=== PATIENT | female | born 2000 | race African-American/Black ===

== ENCOUNTER 2024-06-24 18:07 | Emergency (ER) | payer SELFPAY ==
--- NOTE | ~2024-06-24 | CT_ITS ---
Non-contrast Head CT History: Status post fall Technique: Axial non-contrast imaging of the brain was performed. Dose reduction technique was used on this scan by utilizing automated exposure control and iterative reconstruction technique. The dose -length product (DLP) was 681.00 mGy-cm. Findings: There is no evidence of intracranial hemorrhage, mass lesion, or acute infarct. Brain par enchyma appears normal. The ventricles and subarachnoid spaces are normal in size. The calvarium ap pears normal. The visualized paranasal sinuses and mastoid air cells are clear. Impression: No significant abnormality seen. Reviewed, dictated and finalized at location . Impression: No significant abnormality seen.
[2024-06-24 18:19] VITALS: BP 124/68; PULSE 74; RESP 16; TEMP 36.6; O2SAT 100
[2024-06-24 18:32] LABS: BEDSIDEPREGUCG Negative (Negative)
[2024-06-24 18:33] LABS: BEDSIDEPREGUCG Negative (Negative)
[2024-06-24 18:47] LABS: Basophils Percent Auto 0.4 % (0.2-1.2); Eosinophils Absolute Auto 0.1 K/mm3 (0-0.3); Hematocrit 38.7 % (37.0-47.0); Hemoglobin 12.3 g/dL (12.0-15.0); Immature Granulocyte Absolute 0.01 K/mm3 (0.00-0.031); Immature Granulocyte Percent A 0.2 % (0-0.5); Lymphocytes Percent Auto 45.7 % (18.3-44.2); Mean Corpuscular HGB Conc 31.8 g/dl (32-36); Mean Corpuscular Hemoglobin 27.4 pg (26-34); Mean Corpuscular Volume 86.2 fl (80-100); Mean Platelet Volume 9.8 fl (7.4-10.4); Monocytes Absolute Auto 0.4 K/mm3 (0.1-0.6); Monocytes Percent Auto 8.7 % (2.6-8.5); Neutrophils Absolute Auto 2.2 K/mm3 (1.3-6.7); Platelet Count Result 411 k/mm3 (150-375); Red Blood Count 4.49 M/mm3 (4.2-5.4); Red Cell Distribution Width 12.3 % (11.5-14.5)
[2024-06-24 18:59] LABS: Alanine Aminotransferase 14 U/L (6-35); Albumin Level 4.2 g/dL (3.5-5.1); Alkaline Phosphatase 54 U/L (38-126); Anion Gap 7 mmol/L (4-12); Aspartate Amino Transferase 19 U/L (14-36); Bilirubin,Total 0.3 mg/dL (0.2-1.3); Blood Urea Nitrogen 10 mg/dL (7-17); Carbon Dioxide 27 mmol/L (22-30); Chloride 103 mmol/L (98-107); Estimated Glomerular Filt Rate > 60; Glucose 97 mg/dL (65-110); Potassium 3.7 mmol/L (3.4-5.0); Sodium 137 mmol/L (137-145)
--- OUTSIDE RECORDS SUMMARY | 2024-06-24 19:05 | XMS_ITS | Referral Summary ---
Author Organization [facility] Address [address] [place] [id number] Care Team Providers Care Form Block Maker Name Role Phone Eric Hubbard DO Primary Care Provider + Encounters Date Type Department Care Team Description 04/17/2024 1:15 PM [facility] - 04/17/2024 2:40 PM [facility] Emergency [facility] Emergency Department [address] [place] [address] Lauryn Moses MD Abdominal pain (Primary Dx) Discharge Disposition: Discharge to home or self care 04/16/2024 [facility] Emergency Department [address] [place] [id number] Paula Shah RN 04/14/2024 1:48 PM [facility] - 04/14/2024 2:33 PM [facility] Emergency [facility] Emergency Department [address] [place] [id number] Sore throat (Primary Dx); Acute left-sided low back pain without sciatica Discharge Disposition: Discharge to home or self care from Last 3 Months Allergies No known active allergies Medications norethindrone-e.est radioL-iron (Lo Loestrin Fe) 1 mg-10 mcg (24)/10 mcg (2) tablet Lo Loestrin Fe 1 mg-10 mcg (24)/10 mcg (2) tablet TAKE ONE TABLET BY MOUTH DAILY Active ibuprofen (ADVIL,MOTRIN) 600 mg tablet Take 1 tablet (600 mg total) by mouth every 6 (six) hours as needed for pain 30 tablet 5 Active lidocaine (LIDODERM) 5 %Indications:Pain Place 1 patch on the skin daily Use patch for 12 hours on, 12 hours off. Discard after each use 7 patch 5 Active cyclobenzaprine (FLEXERIL) 10 mg tablet Take 1 tablet (10 mg total) by mouth 3 (three) times a day as needed for muscle spasms for up to 20 doses 20 tablet 5 Active ondansetron ODT (ZOFRAN-ODT) 4 mg disintegrating tablet Take 1 tablet (4 mg total) by mouth every 8 (eight) hours as needed for nausea or vomiting 10 tablet 5 Active ondansetron (ZOFRAN) 4 mg tablet Take 1 tablet (4 mg total) by mouth every 6 (six) hours 12 tablet 5 Active Active Problems Problem Noted Date Diagnosed Date Adjustment disorder with disturbance of conduct 10/31/2020 Ventricular septal defect 03/29/2009 Immunizations Immunization Administration Dates Next Due DTaP 1998,1998 HPV, Quadrivalent 08/31/2009 Hep A, Pediatric 08/31/2009 Influenza, Quadrivalent, Spl it, Preservative Free, Intramuscular 06/08/2020 Moderna SARS-CoV-2 Monovalent Vaccination (12+ Y RS) 07/31/2020,07/03/2020 PPD TEST 06/12/2020,06/08/2020 Polio, Unspecified 1998 Tdap 08/31/2009 Social History Tobacco Use Types Packs/Day Years Used Date Smoking Tobacco: Former Cigarettes Q uit: 2017 Alcohol Use Standard Drinks/Week Comments Never 0 (1 standard drink = 0.6 oz pur e alcohol) AUDIT-C Answer Date Recorded Q1: How often do you have a drink containing alc ohol? Never 10/19/2019 Average Number of Drinks Not on file 020 Frequency of Binge Drinking Not on file 09/22 PHQ-2 Answer Date Recorded PHQ-2 Total Score (If total score is 3 or more points, staff should administer the PHQ-9) 0 10/31/2020 Personal Safety Answer Date Recorded Have you ever been in or are you currently in a harmful physical or emotional relationship or is someone making you feel afraid or unsafe? Denies 04/17/2024 Comments No Sex and Gender Information Value Date Recorded Sex Assigned at Not on file Legal Sex Female 12:06 AM [employer] Gender Identity Not on file Sexual Orientation Not on file Last Filed Vital Signs Vital Sign Reading Time Taken Comments Blood Pressure 107/76 04/17/2024 1:05 PM [employer] [facility] Pulse 90 04/17/2024 1:05 PM [employer] Temperature 36.2 C (97.2 F) 04/17/2024 1:05 PM [employer] Respiratory Rate 16 04/17/2024 1:05 PM [employer] Oxygen Saturation 95% 04/17/2024 1:05 PM [employer] Inhaled Oxygen Concentration - - Weight 70.8 kg (156 lb) 04/17/2024 1:05 PM [employer] [facility] Height 160 cm (5' 3 ) 04/17/2024 1:05 PM [employer] Body Mass Index 27.63 04/17/2024 1:05 PM [employer] [facility] Plan of Treatment Not on file Procedures Procedure Name Priority Date/Time Associated Diagnosis Comments EGFR STAT 04/17/2024 1:09 PM [employer] [facility] DIFFERENTIAL AUTO STAT 04/17/2024 1:0 9 PM [employer] [facility] LIPASE STAT 04/17/2024 1:09 PM [employer] COMPREHENSIVE METABOLIC PANEL STAT 04/17/2024 1:09 PM [employer] CBC WITH AUTO DIFFERENTIAL STAT 04/17/2024 1:09 PM [employer] [facility] INFLUENZA A/B, RSV, AND COVID-19 PCR Routine 04/14/2024 2:29 PM [employer] STREPTOCOCCUS GROUP A PCR STAT 04/14/2024 12:49 PM [employer] [facility] from Last 3 Months Results * eGFR (04/17/2024 1:09 PM [employer]) eGFR >90 >=60 mL/min/1. 73 m2 Comment: Interpretive Data Reference Interval Normal >/= 90 mL/min/1.73m2 Mildly decreased* 60 - 89 mL/min/1.73m2 Mildly to moderately decreased 45 - 59 mL/min/1.73m2 Moderately to severely decreased 30 - 44 mL/min/1.73m2 Severely decreased 15 - 29 mL/min/1.73m2 Kidney Failure < 15 mL/min/1.73m2 *Relative to young adult level Estimated glomerular filtration rate is determined by the 2020 CKD-EPI equation recommended by the National Kidney Foundation (A Unifying Approach to GFR Estimation: Recommendations of the NKF-ASK Task Force on Reassessing the Inclusion of Race in Diagnosing Kidney Disease, JASN 2020). The CKD-EPI equation should not be used for patients with unstable renal function and has not been validated in children and those over 70. Current interpretive data was last reviewed 2021. Blood 04/17/2024 1:09 PM [employer] 04/17/2024 1:12 PM [employer] us Lauryn Moses MD LAB BLOOD ORDERABLES Final Resul t [facility] [address] [facility]. Department of Laboratories [place], [place] [id number] * Differential, auto (04/17/2024 1:09 PM [employer]) Neutrophil abs 3.8 1.5 - 6.5 K/cumm Imm gran abs 0.0 0.0 - 0.1 K/cumm [facility] Lymphocyte abs 1.5 0.8 - 3.3 K/cumm [facility] Monocyte abs 0.3 0.2 - 0.8 K/cumm [facility] Eosinophil abs 0.1 0.0 - 0.5 K/cumm [facility] Basophil abs 0.0 0.0 - 0.1 K/cumm [facility] Neutrophil pct 66.7 % [facility] Comment: Interpretive Data Percent cell count reference ranges are not reported, since discordance with absolute values may lead to misinterpretation of CBC data. Current Interpretive Data was last revised on 2017. Imm gran pct 0.2 % [facility] Comment: Interpretive Data Percent cell count reference ranges are not reported, since discordance with absolute values may lead to misinterpretation of CBC data. Current Interpretive Data was last revised on 2017. Lymphocyte pct 26.2 % [facility] Comment: Interpretive Data Percent cell count reference ranges are not reported, since discordance with absolute values may lead to misinterpretation of CBC data. Current Interpretive Data was last revised on 2017. Monocyte pct 5.6 % [facility] Comment: Interpretive Data Percent cell count reference ranges are not reported, since discordance with absolute values may lead to misinterpretation of CBC data. Current Interpretive Data was last revised on 2017. Eosinophil pct 1.1 % [facility] Comment: Interpretive Data Percent cell count reference ranges are not reported, since discordance with absolute values may lead to misinterpretation of CBC data. Current Interpretive Data was last revised on 2017. Basophil pct 0.2 % [facility] Comment: Interpretive Data Percent cell count reference ranges are not reported, since discordance with absolute values may lead to misinterpretation of CBC data. Current Interpretive Data was last revised on 2017. Blood 04/17/2024 1:09 PM [employer] 04/17/2024 1:11 PM [employer] us Lauryn Moses MD LAB BLOOD ORDERABLES Final Resul t [facility] [id number] [facility] [place] [place] [address] * (ABNORMAL) CBC with auto differential (04/17/2024 1:09 PM [employer]) WBC 5.7 3.8 - 9.9 K/cumm Hgb 13.8 11.9 - 15.5 g/dL [facility] Hct 42.3 35.6 - 45.5 % [facility] Plt 425(H) 150 - 400 K/cumm [facility] MPV 9.6 9.1 - 12.3 fL [facility] RBC 5.03 3.90 - 5.20 M/cumm [facility] MCV 84.1 81.3 - 96.4 fL [facility] MCH 27.4 27.1 - 33.3 pg [facility] MCHC 32.6 32.3 - 35.7 g/dL [facility] RDW CV 12.3 11.1 - 14.9 % [facility] RDW SD 37.5 35.7 - 48.1 fL [facility] NRBC abs 0.00 0.00 - 0.01 K/cumm [facility] Blood Venous blood specimen / Unknown 04/17/2024 1:09 PM [employer] 04/17/2024 1:11 PM [employer] Lauryn Moses MD LAB BLOOD ORDERABLES Final Resul t Performing Organization Address City/[facility]/ZIP Co de Phone Number [facility] [address] [employer] [place] [address] * Lipase (04/17/2024 1:09 PM [employer]) Pathologist [facility] Lipase 24 10 - 99 Units/L Blood Venous blood specimen / Unknown 04/17/2024 1:09 PM [employer] 04/17/2024 1:12 PM [employer] Lauryn Moses MD LAB BLOOD ORDERABLES Final Resul t Performing Organization Address [facility] Co de Phone Number [facility] [address] [employer] [place] [address] * Comprehensive metabolic panel (04/17/2024 1:09 PM [employer]) Sodium 136 135 - 145 mmol/L Potassium, pl 4.2 3.3 - 4.9 mmol/L [facility] Chloride 101 97 - 110 mmol/L [facility] CO2 24 22 - 32 mmol/L [facility] An[facility] gap 11 2 - 15 mmol/L [facility] BUN 12 6 - 25 mg/dL [facility] Creatinine 0.80 0.60 - 1.10 mg/dL [facility] Glucose 120 70 - 199 mg/dL [facility] Comment: Interpretive Data Fasting glucose >/= 126 mg/dl is diagnostic for diabetes. Fasting is defined as no caloric intake for at least 8 hours. Fasting glucose between 100 mg/dl to 125 mg/dl is diagnostic of prediabetes. In a patient with classic symptoms of hyperglycemia or hyperglycemic crisis, a random glucose >/= 200 mg/dl is diagnostic for diabetes. In the absence of unequivocal hyperglycemia, results should be confirmed by repeat testing. The classification and Diagnosis of Diabetes Diabetes Care 2021; 46: S19-S40. Current interpretive data was last revised 2022. Calcium 9.5 8.5 - 10.3 mg/dL [facility] Bilirubin, total 0.2 0.1 - 1.2 mg/dL [facility] Protein, pl 7.6 6.5 - 8.5 g/dL [facility] Albumin 4.4 3.5 - 5.0 g/dL [facility] Alk phos 48 40 - 130 Units/L [facility] ALT 10 7 - 45 Units/L [facility] AST 12 10 - 45 Units/L [facility] Blood 04/17/2024 1:09 PM [employer] 04/17/2024 1:12 PM [employer] Lauryn Moses MD LAB BLOOD ORDERABLES Final Resul t Performing Organization Address City/State/ZIP Co ak Phone Number [facility] [phone] [employer] Department [place] [address] * (ABNORMAL) Influenza A/B, RSV, and COVID-19 PCR Nasopharyngeal (04/14/2024 2:29 PM [employer]) COVID-19 RNA Positive(A) Negative Comment:Testing performed by : [address] [id number] Influenza A RNA Negative Negative [facility] Comment:Testing performed by : [address] [address] Influenza B RNA Negative Negative [facility] Comment:Testing performed by : [address] [id number] RSV RNA Negative Negative [facility] STEPHENSON Comment: Interpretive data: Testing performed by [facility]. This test is performed using the [employer] Xpert Xpress CoV-2/Flu/RSV plus assay. This is a multiplex, real-time reverse transcriptase PCR assay intended for the qualitative detection of nucleic acid from SARS-CoV-2, influenza A, influenza B, and respiratory syncytial virus. This assay has been cleared by the [place] Food and Drug administration. The performance characteristics have been verified by the [facility]. Results must be considered in the clinical context, and a negative result does not rule out infection. Interpretive Data last revised 2023 Testing performed by: [address] [address] Nasopharyngeal 04/14/2024 2: 29 PM [employer] 04/14/2024 2:31 PM [employer] Narrative [facility] - 04/15/2024 8:24 AM [employer] Is the Patient experiencing symptoms consistent with COVID?->Unknown Bree SUERO LAB MICROBIOLOGY - GENERAL OR DERABLES Edited Result - Final [facility] [address] [facility] Department [place] [address] * Streptococcus Group A PCR Throat (04/14/2024 12:49 PM [employer]) Pathologist [facility] Strep A DNA Not Detected Not Detected Comment: This test is performed using the [employer] Xpert Group A Streptococcal Assay. This is a qualitative, real-time PCR assay that detects Group A Strep using throat specimens from patients suspected of having streptococcal pharyngitis. This assay does not detect other beta-hemolytic streptococci including Group C or Group G. Group C and G have been associated with pharyngitis and, occasionally, acute nephritis but do not cause rheumatic fever. If suspected, order Throat Culture, Routine. This assay has been cleared by the [place] Food and Drug Administration, and its performance characteristics have been verified by the performing laboratory. Testing performed by: [address] [address] Throat 04/14/2024 12:4 9 PM [employer] 04/14/2024 12:52 PM [employer] us Blue Oliva MD LAB MICROBIOLOGY - GENERAL ORDER PAWEL Final Result [facility] [address] [facility] Department [place] [address] from Last [address] [place] [address] [facility] Care Teams Form Block Maker Relationship Specialty [place] [address] [place] [id number] PCP - General Family Medicine 02/10/20
--- OUTSIDE RECORDS SUMMARY | 2024-06-24 19:05 | XMS_ITS | Clinical Summary ---
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 Emergency Department [id number] [address] Lauryn Moses MD Abdominal pain (Primary Dx) Discharge Disposition: Discharge to home or self care 04/16/2024 [facility] Emergency Department [address] [place] [address] Paula Shah RN 04/14/2024 1:48 PM [facility] - 04/14/2024 2:33 PM [facility] Emergency [facility] Emergency Department [address] [place] [address] Sore throat (Primary Dx); Acute left-sided low back pain without sciatica Discharge Disposition: Discharge to home or self care from Last 3 Months Immunizations Immunization Administration Dates Next Due DTaP 1998,1998 HPV, Quadrivalent 08/31/2009 Hep A, Pediatric 08/31/2009 Influenza, Quadrivalent, Spl it, Preservative Free, Intramuscular 06/08/2020 Moderna SARS-CoV-2 Monovalent Vaccination (12+ Y RS) 07/31/2020,07/03/2020 PPD TEST 06/12/2020,06/08/2020 Polio, Unspecified 1998 Tdap 08/31/2009 Family History Medical History Relation Name Comments Breast cancer Mother Relation Name Status Comments Father Alive Mother Alive Social History Tobacco Use Types Packs/Day Years [...] on file Legal Sex Female 12:06 AM TRIPLE DRUM OPERATOR Gender Identity Not on file Sexual Orientation Not on file Obstetrics History Last Filed Vital Signs Vital Sign Reading Time Taken Comments Blood Pressure 107/76 04/17/2024 1:05 PM TRIPLE DRUM OPERATOR Pulse 90 04/17/2024 1:05 PM TRIPLE DRUM OPERATOR Temperature 36.2 C (97.2 F) 04/17/2024 1:05 PM TRIPLE DRUM OPERATOR Respiratory Rate 16 04/17/2024 1:05 PM TRIPLE DRUM OPERATOR Oxygen Saturation 95% 04/17/2024 1:05 PM TRIPLE DRUM OPERATOR Inhaled Oxygen Concentration - - Weight 70.8 kg (156 lb) 04/17/2024 1:05 PM TRIPLE DRUM OPERATOR Height 160 cm (5' 3 ) 04/17/2024 1:05 PM TRIPLE DRUM OPERATOR Body Mass Index 27.63 04/17/2024 1:05 PM TRIPLE DRUM OPERATOR Plan of Treatment Health Maintenance Due Date Last Done Comments Cervical Cancer Screening 1998 Hepatitis C Screening 1998 HPV Vaccines (2 - 2-dose series) 03/02/2010 08/31/2009 Varicella Vaccines (1 of 2 - 13+ 2-dose series) 2011 Hepatitis B Screening 2016 DTaP/Tdap/Td Vaccine (4 - Td or Tdap) 09/01/2019 08/31/2009, 1998, 1998 Depression Screening 10/31/2021 10/31/2020, 10/19/2019 Regular Well Visit/Exam 18-64 10/31/2021, 10/19/2019 Covid-19 Vaccine (3 - 2023-2 5 season) 2023 07/31/2020, 07/03/2020 Influenza Vaccine (#1) 2023 , 06/08/2020 Pneumococcal vaccine <65 Aged Out No longer eligible based on patient's age to complete this topic Procedures Procedure Name Priority Date/Time Associated Diagnosis Comments EGFR STAT 04/17/2024 1:09 PM TRIPLE DRUM OPERATOR DIFFERENTIAL AUTO STAT 04/17/2024 1:0 9 PM TRIPLE DRUM OPERATOR LIPASE STAT 04/17/2024 1:09 PM TRIPLE DRUM OPERATOR COMPREHENSIVE METABOLIC PANEL STAT 04/17/2024 1:09 PM TRIPLE DRUM OPERATOR CBC WITH AUTO DIFFERENTIAL STAT 04/17/2024 1:09 PM TRIPLE DRUM OPERATOR INFLUENZA A/B, RSV, AND COVID-19 PCR Routine 04/14/2024 2:29 PM TRIPLE DRUM OPERATOR STREPTOCOCCUS GROUP A PCR STAT 04/14/2024 12:49 PM TRIPLE DRUM OPERATOR from Last 3 Months Results * eGFR (04/17/2024 1:09 PM TRIPLE DRUM OPERATOR) eGFR >90 >=60 mL/min/1. 73 m2 Comment: [...] last reviewed 2021. Blood 04/17/2024 1:09 PM TRIPLE DRUM OPERATOR 04/17/2024 1:12 PM TRIPLE DRUM OPERATOR us Lauryn Moses MD LAB BLOOD ORDERABLES Final Resul t [facility] [address] [address] [place] [address] * Differential, auto (04/17/2024 1:09 PM TRIPLE DRUM OPERATOR) Neutrophil abs 3.8 1.5 - 6.5 K/cumm Imm gran abs 0.0 0.0 - 0.1 K/cumm [facility] Lymphocyte abs 1.5 0.8 - 3.3 K/cumm [facility] Monocyte abs 0.3 0.2 - 0.8 K/cumm [facility] Eosinophil abs 0.1 0.0 - 0.5 K/cumm [facility] Basophil abs 0.0 0.0 - 0.1 K/cumm [facility] Neutrophil pct 66.7 % [facility] Comment: Interpretive Data Percent cell count reference ranges are not reported, since discordance with absolute values may lead to misinterpretation of CBC data. Current Interpretive Data was last revised on 2017. Imm gran pct 0.2 % [facility] Comment: Interpretive Data Percent cell count reference ranges are not reported, since discordance with absolute values may lead to misinterpretation of CBC data. Current Interpretive Data was last revised on 2017. Lymphocyte pct 26.2 % [facility] Comment: Interpretive Data Percent cell count reference ranges are not reported, since discordance with absolute values may lead to misinterpretation of CBC data. Current Interpretive Data was last revised on 2017. Monocyte pct 5.6 % [facility] Comment: Interpretive Data Percent cell count reference ranges are not reported, since discordance with absolute values may lead to misinterpretation of CBC data. Current Interpretive Data was last revised on 2017. Eosinophil pct 1.1 % [facility] Comment: Interpretive Data Percent cell count reference ranges are not reported, since discordance with absolute values may lead to misinterpretation of CBC data. Current Interpretive Data was last revised on 2017. Basophil pct 0.2 % [facility] Comment: Interpretive Data Percent cell count reference ranges are not reported, since discordance with absolute values may lead to misinterpretation of CBC data. Current Interpretive Data was last revised on 2017. Blood 04/17/2024 1:09 PM TRIPLE DRUM OPERATOR 04/17/2024 1:11 PM TRIPLE DRUM OPERATOR Lauryn Moses MD LAB BLOOD ORDERABLES Final Resul t Performing Organization Address City/[place] [facility] Co de Phone Number LORIE BEAUCHAMP [address] [facility] [employer] [place], [place] [id number] * (ABNORMAL) CBC with auto differential (04/17/2024 1:09 PM TRIPLE DRUM OPERATOR) Pathologist [facility] WBC 5.7 3.8 - 9.9 K/cumm Hgb 13.8 11.9 - 15.5 g/dL [facility] Hct 42.3 35.6 - 45.5 % [facility] Plt 425(H) 150 - 400 K/cumm [facility] MPV 9.6 9.1 - 12.3 fL [facility] RBC 5.03 3.90 - 5.20 M/cumm [facility] MCV 84.1 81.3 - 96.4 fL [facility] MCH 27.4 27.1 - 33.3 pg [facility] MCHC 32.6 32.3 - 35.7 g/dL [facility] RDW CV 12.3 11.1 - 14.9 % [facility] RDW SD 37.5 35.7 - 48.1 fL [facility] NRBC abs 0.00 0.00 - 0.01 K/cumm [facility] Blood Venous blood specimen / Unknown 04/17/2024 1:09 PM TRIPLE DRUM OPERATOR 04/17/2024 1:11 PM TRIPLE DRUM OPERATOR Lauryn Moses MD LAB BLOOD ORDERABLES Final Resul t LORIE BEAUCHAMP [address] [address] [facility] [place] [address] * Lipase (04/17/2024 1:09 PM TRIPLE DRUM OPERATOR) Lipase 24 10 - 99 Units/L Blood Venous blood specimen / Unknown 04/17/2024 1:09 PM TRIPLE DRUM OPERATOR 04/17/2024 1:12 PM TRIPLE DRUM OPERATOR us Lauryn Moses MD LAB BLOOD ORDERABLES Final Resul t [facility] [address] [facility]. Department [place] [address] * Comprehensive metabolic panel (04/17/2024 1:09 PM TRIPLE DRUM OPERATOR) Sodium 136 135 - 145 mmol/L Potassium, pl 4.2 3.3 - 4.9 mmol/L [facility] Chloride 101 97 - 110 mmol/L [facility] CO2 24 22 - 32 mmol/L [facility] Anion gap 11 2 - 15 mmol/L [facility] BUN 12 6 - 25 mg/dL [facility] Creatinine 0.80 0.60 - 1.10 mg/dL [facility] [...] Units/L [facility] Blood 04/17/2024 1:09 PM TRIPLE DRUM OPERATOR 04/17/2024 1:12 PM TRIPLE DRUM OPERATOR Lauryn Moses MD LAB BLOOD ORDERABLES Final Resul t LORIE BEAUCHAMP [address] [facility] Department [place] [address] * (ABNORMAL) Influenza A/B, RSV, and COVID-19 PCR Nasopharyngeal (04/14/2024 2:29 PM TRIPLE DRUM OPERATOR) COVID-19 RNA Positive(A) Negative Comment:Testing performed by : [address] [address] Influenza A RNA Negative Negative [facility] Comment:Testing performed by : [address] [address] Influenza B RNA Negative Negative [facility] Comment:Testing performed by : [address], [address] RSV RNA Negative Negative [facility] Comment: Interpretive data: Testing performed by [facility]. This test is performed using the [employer] Xpert Xpress CoV-2/Flu/RSV plus assay. This is a multiplex, real-time reverse transcriptase PCR assay intended for the qualitative detection of nucleic acid from SARS-CoV-2, influenza A, influenza B, and respiratory syncytial virus. This assay has been cleared by the [place] Food and Drug administration. The performance characteristics have been verified by the [facility]. Results must be considered in the clinical context, and a negative result does not rule out infection. Interpretive Data last revised 2023 Testing performed by: [address] [address] Nasopharyngeal 04/14/2024 2: 29 PM TRIPLE DRUM OPERATOR 04/14/2024 2:31 PM TRIPLE DRUM OPERATOR Narrative LORIE - 04/15/2024 8:24 AM TRIPLE DRUM OPERATOR Is the Patient experiencing symptoms consistent with COVID?->Unknown Bree SUERO LAB MICROBIOLOGY - GENERAL OR DERABLES Edited Result - Final Performing Organization Address City/[facility] Co de Phone Number LORIE [address] [facility] Department [place] [address] * Streptococcus Group A PCR Throat (04/14/2024 12:49 PM TRIPLE DRUM OPERATOR) Strep A DNA Not Detected Not Detected Comment: This test is performed using the [employer] Xpert Group A Streptococcal Assay. This is [...] by the performing laboratory. Testing performed by: [facility], [address] [place] [address]., [id number] Throat 04/14/2024 12:4 9 PM TRIPLE DRUM OPERATOR 04/14/2024 12:52 PM TRIPLE DRUM OPERATOR us Blue Oliva MD LAB MICROBIOLOGY - GENERAL ORDER PAWEL Final Result Performing Organization Address [facility] Co de Phone Number LORIE STEPHENSON [address] [facility] Department [place] [address] from Last 3 Months Insurance [facility] [place] [address] [address] [place] [address] [facility] Care Teams Passenger Car Upholsterer Apprentice Relationship Specialty Start Date End Date Eric Hubbard DO [address] [place] [id number] PCP - General Family Medicine 02/10/20
--- OUTSIDE RECORDS SUMMARY | 2024-06-24 19:05 | XMS_ITS | Clinical Summary ---
Author Organization [facility] Address [address] [place] [id number] Care Team Providers Care Combustion Analyst Name Role Phone Unavailable Primary Care Provider Unavailabl e Allergies No known active allergies Medications No known medications Active Problems No known active problems Family History Medical History Relation Comments Hypertension Father Diabetes Maternal Grandmother Relation Status Comments Father Maternal Grandmother Social History Tobacco Use Types Packs/Day Years Used Date Smoking Tobacco: Never Smokeless Tobacco: Never Alcohol Use Standard Drinks/Week Comments No 0 (1 standard drink = 0.6 oz pur e alcohol) Comments No Sex and Gender Information Value Date Recorded Sex Assigned at Not on file Legal Sex Female 7:50 PM CDT Gender Identity Not on file Sexual Orientation Not on file Last Filed Vital Signs Vital Sign Reading Time Taken Comments Blood Pressure 121/77 03/21/2017 3:20 PM 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 Pulse 71 03/29/2017 6:29 PM 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 Temperature 37 C (98.6 F) 03/29/2017 6:29 PM 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 Respiratory Rate 20 03/29/2017 6:29 PM 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 Oxygen Saturation 100% 03/29/2017 6:29 PM 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 Inhaled Oxygen Concentration - - Weight 63.5 kg (140 lb) 03/29/2017 6:29 PM 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 Height 162.6 cm (5' 4 ) 03/29/2017 6:29 PM 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 Body Mass Index 24.03 03/29/2017 6:29 PM 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 Plan of Treatment Health Maintenance Due Date Last Done Comments Cervical Cancer Screening Pa p Smear (Age 21 to 29) Every 3 Years 1998 Cervical Cancer Screening 1998 Annual Physical 2001 HPV Vaccines (1 - 3-dose series) 2013 Hepatitis C 2016 DTaP, Tdap and Td Vaccines ( 1 - Tdap) 2017 Hepatitis B Vaccines (1 of 3 - 19+ 3-dose series) 2017 COVID-19 Vaccine (2023-2 5 season) 2023 Influenza Adult (#1) 2023 Meningococcal B Vaccine Aged Out No l onger eligible based on patient's age to complete this topic Meningococcal Vaccine Aged Out No margareth lois eligible based on patient's age to complete this topic Pneumococcal Vaccine: Pediat rics (0 to 5 Years) and At-Risk Patients (6 to 64 Years) Aged Out No longer eligible b ased on patient's age to complete this topic RSV Immunizations Under 20 Months Aged Out No longer eligible based on patient's age to complete this topic Insurance [place]
[2024-06-24 19:13] LABS: Amphetamine Screen Urine Negative (Negative); Barbiturate Screen Urine Negative (Negative); Benzodiazepines Screen Urine Negative (Negative); Cannabinoid Screen Urine Negative (Negative); Cocaine Screen Urine Negative (Negative); Methadone Screen Urine Negative (Negative); Opiate Screen Urine Negative (Negative); Phencyclidine Screen Urine Negative (Negative)
[2024-06-24 19:21] LABS: Add Urine Microscopic? NO; Appearance Urine Clear (Clear); Bilirubin Urine Negative (Negative); Blood Urine Negative (Negative); Color Urine Yellow (Yellow); Glucose Urine UA Negative (Negative); Ketones Urine Negative (Negative); Leukocyte Esterase Ur Negative LEU/UL (Negative); Nitrate Urine Negative (Negative); Protein Urine Negative (Negative); Specific Grav Ur 1.015 (1.001-1.035); Urobilinogen Urine 0.2 mg/dL (<2.0)
--- NOTE | 2024-06-24 19:22 | ED.PSYCH ---
HPI - Psych General Chief Complaint: Psychiatric Symptoms Stated Complaint: depression, anxiety Time Seen by Provider: 06/24/24 18:21 History of Present Illness HPI Narrative: Patient is a 24-year-old female who presents to ER with complaints of increased anxiety. She reports her anxiety symptoms have been going on for the past year but in the past week it has gotten worse. Patient reports she has had a difficult time sleeping. She reports she came in today because her mom advised her to but also because she ?wants help. Patient denies any SI or HI. 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 Patient denies any other medical history. She denies drug or alcohol use. Patient endorses a headache at the time of examination. Related Data Allergies Allergy/AdvReac Type Severity Reaction Status Date / Time No Known Allergies Allergy Verified 06/24/24 18:08 Review of Systems Review of Systems: All systems reviewed & are unremarkable except as noted in HPI and below PMFSH Social History Social History Substance use type: does not use Exam Narrative: GENERAL: Well appearing, well-nourished, non-toxic, in no acute distress. HEAD: Normocephalic, atraumatic. NECK: Supple. No adenopathy, no masses. RESPIRATORY: Airway patent, respirations nonlabored. Clear to auscultation bilaterally, no rales, rhonchi, wheezing. CARDIOVASCULAR: Regular rate and rhythm without murmurs, rubs, or gallops. Peripheral pulses 2+ and equal bilaterally. ABDOMINAL: Soft, nontender, nondistended, no hepatosplenomegaly. Normoactive BS. MUSCULOSKELETAL: Moves all extremities. Strength/ROM intact without gross deformities. SKIN: Warm, dry, normal color. No rashes. NEURO: A&O X3. Speech clear. Cranial nerves II-XII intact. No ataxic movements. PSYCHIATRIC: Flat affect. Fair amount of word searching when conversing. Course Vital Signs Vital signs: Vital Signs Temperature 36.6 C 06/24/24 18:19 Pulse Rate 74 06/24/24 18:19 Respiratory Rate 16 06/24/24 18:19 Blood Pressure 124/68 06/24/24 18:19 Pulse Oximetry 100 06/24/24 18:19 Oxygen Delivery Room Air 06/24/24 18:19 Temperature 36.6 C 06/24/24 18:19 Pulse Rate 89 06/25/24 06:04 Respiratory Rate 18 06/25/24 06:04 Blood Pressure 114/73 06/25/24 06:04 Pulse Oximetry 99 06/25/24 06:04 Oxygen Delivery Room Air 06/24/24 18:19 MDM - Psych MDM Narrative Medical decision making narrative: Patient is a 24-year-old female who presents to ER with complaints of increased anxiety. She reports her anxiety symptoms have been going on for the past year but in the past week it has gotten worse. Patient reports she has had a difficult time sleeping. She reports she came in today because her mom advised her to but also because she ?wants help. Patient denies any SI or HI. 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 Patient denies any other medical history. She denies drug or alcohol use. Labs Ordered: CBC, CMP, TSH, ethanol, UA, COVID/flu/RSV, UDS Imaging Ordered: Head CT (pt disclosed to intake that she had fallen recently and was unsure of LOC) Medications Ordered: Tylenol 1 g p.o., Ativan 0.5 mg p.o. Results: Pt's head CT scan indicates no acute intracranial abnormalities. Diagnosis: Anxiety, depression, concern for acute psychosis Consults: mental health intake Patient Education/Shared MDM: 1957-patient is medically clear for intake Pt endorses improvement of anxiety symptoms following medication administration. Psychiatric intake advised pt be admitted to for inpatient psychiatric treatment. 0315- Care signed out to Dr. Fernandez. Differential Diagnosis Differential diagnosis: Likely acute psychosis, suicidal ideation, bipolar disorder, depression and acute anxiety Lab Data Attestation: I reviewed the patient's lab results. 06/24/24 18:34 06/24/24 18:34 Labs: Lab Results 06/24/24 06/24/24 06/24/24 Range/Units 18:28 18:31 18:31 WBC (4.5-10.0) K/mm3 RBC (4.2-5.4) M/mm3 Hgb (12.0-15.0) g/dL Hct (37.0-47.0) % MCV (80-100) fl MCH (26-34) pg MCHC (32-36) g/dl RDW (11.5-14.5) % Plt Count (150-375) k/mm3 MPV (7.4-10.4) fl Immature Gran % (Auto) (0-0.5) % Neut % (Auto) (45.5-73.1) % Lymph % (Auto) (18.3-44.2) % [place] % (Auto) (2.6-8.5) % Eos % (Auto) (0-4.4) % Baso % (Auto) (0.2-1.2) % Lymph # (Auto) (0.9-3.2) K/mm3 [place] # (Auto) (0.1-0.6) K/mm3 Eos # (Auto) (0-0.3) K/mm3 Baso # (Auto) (0.0-0.1) K/mm3 Abs Immat Gran (auto) (0.00-0.031) K/mm3 Absolute Neuts (auto) (1.3-6.7) K/mm3 Absolute Nucleated RBC (0.0-0.012) K/mm3 Nucleated RBC % (0.0-0.2) % Sodium (137-145) mmol/L Potassium (3.4-5.0) mmol/L Chloride (98-107) mmol/L Carbon Dioxide (22-30) mmol/L Anion Gap (4-12) mmol/L BUN (7-17) mg/dL Creatinine (0.7-1.0) mg/dL Estim Creat Clear Calc Estimated GFR (59 - ) Glucose (65-110) mg/dL Calcium (8.4-10.2) mg/dL Total Bilirubin (0.2-1.3) mg/dL AST (14-36) U/L ALT (6-35) U/L Alkaline Phosphatase (38-126) U/L Total Protein (6.3-8.2) g/dL Albumin (3.5-5.1) g/dL TSH (Reflex) (0.465-4.68) uIU/mL Urine Color (Yellow) Urine Appearance (Clear) Urine pH (5.0-9.0) Ur Specific [place] (1.001-1.035) Urine Protein (Negative) mg/dL Urine Glucose (UA) (Negative) mg/dL Urine Ketones (Negative) mg/dL Ur Blood (Man) (Negative) Urine Nitrate (Negative) Urine Bilirubin (Negative) Urine Urobilinogen (<2.0) mg/dL Leukocyte Esterase Rfl (Negative) ISAEL/UL POC Urine HCG, Qual Negative Negative (Negative) Urine Opiates Screen Negative (Negative) Urine Methadone Screen Negative (Negative) Ur Barbiturates Screen Negative (Negative) Ur Phencyclidine Scrn Negative (Negative) Ur Amphetamine Screen Negative (Negative) U Benzodiazepines Scrn Negative (Negative) Urine Cocaine Screen Negative (Negative) U Cannabinoids Screen Negative (Negative) Ethyl Alcohol (<10) mg/dL SARS-CoV-2 RNA (RT-PCR) (Negative) 06/24/24 Range/Units 18:34 WBC 5.0 (4.5-10.0) K/mm3 RBC 4.49 (4.2-5.4) M/mm3 Hgb 12.3 (12.0-15.0) g/dL Hct 38.7 (37.0-47.0) % MCV 86.2 (80-100) fl MCH 27.4 (26-34) pg MCHC 31.8 L (32-36) g/dl RDW 12.3 (11.5-14.5) % Plt Count 411 H (150-375) k/mm3 MPV 9.8 (7.4-10.4) fl Immature Gran % (Auto) 0.2 (0-0.5) % Neut % (Auto) 43.0 L (45.5-73.1) % Lymph % (Auto) 45.7 H (18.3-44.2) % [place] % (Auto) 8.7 H (2.6-8.5) % Eos % (Auto) 2.0 (0-4.4) % Baso % (Auto) 0.4 (0.2-1.2) % Lymph # (Auto) 2.30 (0.9-3.2) K/mm3 [place] # (Auto) 0.4 (0.1-0.6) K/mm3 Eos # (Auto) 0.1 (0-0.3) K/mm3 Baso # (Auto) 0.0 (0.0-0.1) K/mm3 Abs Immat Gran (auto) 0.01 (0.00-0.031) K/mm3 Absolute Neuts (auto) 2.2 (1.3-6.7) K/mm3 Absolute Nucleated RBC 0.000 (0.0-0.012) K/mm3 Nucleated RBC % 0.0 (0.0-0.2) % Sodium 137 (137-145) mmol/L Potassium 3.7 (3.4-5.0) mmol/L Chloride 103 (98-107) mmol/L Carbon Dioxide 27 (22-30) mmol/L Anion Gap 7 (4-12) mmol/L BUN 10 (7-17) mg/dL Creatinine 0.94 (0.7-1.0) mg/dL Estim Creat Clear Calc Not Reportable Estimated GFR > 60 (59 - ) Glucose 97 (65-110) mg/dL Calcium 9.0 (8.4-10.2) mg/dL Total Bilirubin 0.3 (0.2-1.3) mg/dL AST 19 (14-36) U/L ALT 14 (6-35) U/L Alkaline Phosphatase 54 (38-126) U/L Total Protein 7.0 (6.3-8.2) g/dL Albumin 4.2 (3.5-5.1) g/dL TSH (Reflex) 2.420 (0.465-4.68) uIU/mL Urine Color Yellow (Yellow) Urine Appearance Clear (Clear) Urine pH 6.0 (5.0-9.0) Ur Specific [place] 1.015 (1.001-1.035) Urine Protein Negative (Negative) mg/dL Urine Glucose (UA) Negative (Negative) mg/dL Urine Ketones Negative (Negative) mg/dL Ur Blood (Man) Negative (Negative) Urine Nitrate Negative (Negative) Urine Bilirubin Negative (Negative) Urine Urobilinogen 0.2 (<2.0) mg/dL Leukocyte Esterase Rfl Negative (Negative) ISAEL/UL POC Urine HCG, Qual (Negative) Urine Opiates Screen (Negative) Urine Methadone Screen (Negative) Ur Barbiturates Screen (Negative) Ur Phencyclidine Scrn (Negative) Ur Amphetamine Screen (Negative) U Benzodiazepines Scrn (Negative) Urine Cocaine Screen (Negative) U Cannabinoids Screen (Negative) Ethyl Alcohol < 10 (<10) mg/dL SARS-CoV-2 RNA (RT-PCR) Negative (Negative) Discharge Plan Discharge Clinical Impression: Anxiety, Depression, At risk for impaired psychological state Patient Disposition: Psychiatric Hosp Condition: Stable Patient Language: [place] Follow-up/Referrals: PHYSICIAN,SWEATER DESIGNER [Primary Care Provider] -
[2024-06-24 19:23] LABS: SARS-CoV-2 RNA PCR Negative (Negative)
[2024-06-24 19:43] LABS: Ethanol < 10 mg/dL (<10)
[2024-06-24] MEDS: ACETAMINOPHEN 500 MG TABLET 1000 MG PO (20:04)
[2024-06-24 20:39] VITALS: BP 121/79; PULSE 67; RESP 18; O2SAT 100
[2024-06-24] MEDS: LORazepam (*CRX) 0.5 MG TABLET PO (22:28)
--- NOTE | 2024-06-24 23:37 | PC.NURSE ---
Rita states they will not accept pt unless she has insurance.
--- NOTE | 2024-06-25 00:21 | PC.NURSE ---
[facility]jiv Villar declined pt. [facility] called at this time and requests for a head CT to be done. NADEEN Laurent notified.
--- NOTE | 2024-06-25 00:31 | PC.NURSE ---
Per Torossian pt symptoms do not clinically qualify for head CT.
--- NOTE | 2024-06-25 03:53 | PC.NURSE ---
This RN spoke with Violet from [facility] at this time. Per Violet she states pt has been accepted to [facility] and they will call us back with a number to give report to.
--- NOTE | 2024-06-25 04:33 | PC.NURSE ---
ISAIAH spoke with Robyn from [facility] and gave report at this time.
[2024-06-25 06:04] VITALS: BP 114/73; PULSE 89; RESP 18; O2SAT 99
== END 2024-06-25 06:05 ==
PROVIDERS: Emergency Provider Registered Nurse
DX: F41.9 Anxiety disorder, unspecified (principal); F32.A Depression, unspecified; Z20.822 Contact with and (suspected) exposure to COVID-19
CPT/HCPCS: 36415; 70450; 80053; 80307; 81003; 81025; 82077; 84443; 85025; 87635; 99285; A9270